=== PATIENT | male | born 1960 | race Hispanic/Latino ===

== ENCOUNTER → 2017-03-07 | Outpatient (CLI) | payer OTHER ==
[~2017-03-07] VITALS: Ht 165.1 cm; Wt 83.5 kg
[~2017-03-07] MED LIST: 24 HOUR ALLER15.8 ML BOTH NARES; LIPITOR20 MG PO; LISINOPRIL20 MG PO; METOPROLOL TART50 MG PO; SINGULAIR10 MG PO; [UNRECOGNIZED DRUG - OTHER]
[2017-03-07 15:13] LABS: HEMATOCRIT 43.8 % (38.0-50.0); MCH 33.2 PG (29.0-34.0); MCHC 34.5 G/DL (30.0-36.0); MCV 96.3 FL (86-99); MEAN PLAT.VOLUME 10.5 uM^3 (9.0-12.4); PLATELET COUNT 213 K/uL (156-360); RBC DIS.WIDTH-CV 12.5 % (11.8-14.6); RBC DIS.WIDTH-SD 44.3 % (39-53); RED BLOOD COUNT 4.55 M/uL (4.00-5.50); WHITE BLOOD COUNT 7.1 K/uL (4.1-10.2)
[2017-03-07 15:23] LABS: INTER. NORMALIZED RATIO 1.1; PROTHROMBIN TIME 11.4 (9.2-11.2); PTT 28.5 (25-32)
== END | disposition home or self-care (01) ==
LOC: AMB 14:30
PROVIDERS: Internal Medicine Pulmonary Disease
DX: J98.4 Other disorders of lung (principal); R59.1 Generalized enlarged lymph nodes; R05 Cough; I10 Essential (primary) hypertension; E78.5 Hyperlipidemia, unspecified; G47.30 Sleep apnea, unspecified; J45.909 Unspecified asthma, uncomplicated; E66.9 Obesity, unspecified; Z68.30 Body mass index [BMI] 30.0-30.9, adult
CPT/HCPCS: 71010; 85027; 85610; 85730; 87070; 87116; 87205; 87206; 88108; 88173; 88305; J0171; J0461; J2175; J2250; J2310; J2550; J3010